=== PATIENT | female | born 1995 | race Caucasian/White ===

== ENCOUNTER 2018-10-28 17:42 | Inpatient (IN) | payer BC, OTHER ==
[~2018-10-28] VITALS: Ht 160 cm; Wt 84.1 kg
[2018-10-28 17:50] VITALS: BP 122/69
[2018-10-28 18:50] LABS: MICROSCOPIC NOT IND
[2018-10-28 18:53] LABS: BASOPHILS # (AUTO) 0.01 x10^3/uL (0-0.1); BASOPHILS % (AUTO) 0 % (0-1); EOSINOPHILS # (AUTO) 0.19 x10^3/uL (0-0.4); EOSINOPHILS % (AUTO) 2 % (1-7); LYMPHOCYTES # (AUTO) 1.63 x10^3/uL (1-3.4); LYMPHOCYTES % (AUTO) 13 % (22-44); MD NO; MEAN CORPUSCULAR HEMOGLOBIN 34.5 pg (27.0-34.8); MEAN CORPUSCULAR HGB CONC 33.9 g/dL (32.4-35.8); MEAN CORPUSCULAR VOLUME 101.7 fL (80-100); MEAN PLATELET VOLUME 7.4 fL (7.4-10.4); MONOCYTES # (AUTO) 1.18 x10^3/uL (0.2-0.8); MONOCYTES % (AUTO) 9 % (2-9); NEUTROPHILS # (AUTO) 9.63 x10^3/uL (1.8-6.8); NEUTROPHILS % (AUTO) 76 % (42-75); PLATELET COUNT 250 x10^3/uL (130-400); RED BLOOD COUNT 4.26 x10^6/uL (3.82-5.3); RED CELL DISTRIBUTION WIDTH 15.6 % (9.6-15.2)
[2018-10-28] MEDS ORDERED: OXYTOCIN 30U/ 0.9% NaCL 500ML 500 ML IV ONE (20:30)
[2018-10-28] MEDS ORDERED: ALUMINUM/MAG/SIMETHICONE 30 ML UDC PO PRN (20:30)
[2018-10-28] MEDS ORDERED: TERBUTALINE 1 MG/ML, 1ML SQ PRN (20:30)
[2018-10-28] MEDS ORDERED: FENTANYL PF 100 MCG/2ML IVPush PRN (20:30)
[2018-10-28] MEDS ORDERED: TERBUTALINE 1 MG/ML, 1ML IVPush PRN ×2 (20:30)
[2018-10-28] MEDS ORDERED: ONDANSETRON 2MG/ML, 2ML IVPush PRN (20:30)
[2018-10-28] MEDS ORDERED: FENTANYL PF 100 MCG/2ML IV PRN (20:30)
[2018-10-28] MEDS ORDERED: SODIUM CITRATE/CITRIC ACID 15 ML UDC PO PRN (20:30)
[2018-10-28] MEDS ORDERED: CALCIUM CARBONATE 500 MG TAB.CHEW PO PRN (20:30)
[2018-10-28] MEDS ORDERED: D5%-LACTATED RINGERS 1,000 ML IV SCH (20:30)
[2018-10-28] MEDS ORDERED: OXYTOCIN 30U/ 0.9% NaCL 500ML 500 ML ONE (20:37)
[2018-10-28] MEDS ORDERED: NEWBORN KIT ONE (20:37)
[2018-10-28] MEDS ORDERED: PLEASE ENTER ALLERGIES MC SCH (21:00)
[2018-10-28 21:08] LABS: MEAN CORPUSCULAR HEMOGLOBIN 34.5 pg (27.0-34.8); MEAN CORPUSCULAR HGB CONC 33.8 g/dL (32.4-35.8); MEAN CORPUSCULAR VOLUME 102.2 fL (80-100); MEAN PLATELET VOLUME 7.3 fL (7.4-10.4); PLATELET COUNT 248 x10^3/uL (130-400); RED BLOOD COUNT 4.39 x10^6/uL (3.82-5.3); RED CELL DISTRIBUTION WIDTH 15.7 % (9.6-15.2)
[2018-10-28 21:20] VITALS: BP 122/70
[2018-10-28] MEDS: LACTATED RINGERS 1,000 ML IV SCH (21:20)
[2018-10-28 21:30] LABS: BASOPHILS # (AUTO) 0.03 x10^3/uL (0-0.1); BASOPHILS % (AUTO) 0 % (0-1); EOSINOPHILS # (AUTO) 0.17 x10^3/uL (0-0.4); EOSINOPHILS % (AUTO) 1 % (1-7); LYMPHOCYTES # (AUTO) 2.03 x10^3/uL (1-3.4); LYMPHOCYTES % (AUTO) 12 % (22-44); MD MORPH REVIEW ONLY; MONOCYTES # (AUTO) 1.24 x10^3/uL (0.2-0.8); MONOCYTES % (AUTO) 8 % (2-9); NEUTROPHILS # (AUTO) 13.15 x10^3/uL (1.8-6.8); NEUTROPHILS % (AUTO) 79 % (42-75)
[2018-10-28 21:31] LABS: PMNS WITH VACUOLES 1+
[2018-10-28 21:32] LABS: <PLATELET ESTIMATE> ADEQUATE; <PLT MORPHOLOGY> NORMAL PLT MORPH
[2018-10-28] MEDS ORDERED: LACTATED RINGERS 1,000 ML IV SCH (23:35)
[2018-10-28] MEDS ORDERED: FENTANYL/BUPIV./NS/PF 250 ML EPIDCONT SCH (23:35)
[2018-10-28] MEDS ORDERED: FENTANYL PF 500 MCG, BUPIVACAINE/PF 0.5%, 30ML 62.5 ML in SODIUM CHLORIDE 0.9% 177.5 ML EPIDCONT SCH (23:45)
[2018-10-29] MEDS ORDERED: LACTATED RINGERS 1,000 ML IVBOLUS PRN
[2018-10-29] MEDS ORDERED: OXYTOCIN 30U/ 0.9% NaCL 500ML 500 ML IV PRN (00:46)
[2018-10-29] MEDS ORDERED: OXYTOCIN 30U/ 0.9% NaCL 500ML 500 ML ONE ×2 (01:08→14:17)
[2018-10-29] MEDS ORDERED: BUPIVACAINE 0.25% ONE (03:59)
[2018-10-29] MEDS ORDERED: FENTANYL PF 100 MCG/2ML ONE (03:59)
[2018-10-29] MEDS: LACTATED RINGERS 1,000 ML IV SCH (04:21)
[2018-10-29] MEDS ORDERED: LACTATED RINGERS 1,000 ML IV SCH (04:32)
[2018-10-29] MEDS ORDERED: FENTANYL/BUPIV./NS/PF 250 ML EPIDCONT SCH (04:32)
[2018-10-29] MEDS ORDERED: EPHEDRINE 50 MG/ML, 1ML IVPush PRN ×2 (05:00)
[2018-10-29] MEDS ORDERED: ONDANSETRON 2MG/ML, 2ML IVPush PRN (05:00)
[2018-10-29 07:21] VITALS: BP 118/67
[2018-10-29] MEDS ORDERED: ACETAMINOPHEN 500 MG TABLET PO STA (10:00)
[2018-10-29] MEDS ORDERED: AMPICILLIN 2 GM in SODIUM CHLORIDE 0.9% 100 ML IV SCH (10:00)
[2018-10-29] MEDS ORDERED: ACETAMINOPHEN 500 MG TABLET ONE (10:05)
[2018-10-29] MEDS ORDERED: MISOPROSTOL 200 MCG TABLET ONE (10:22)
[2018-10-29] MEDS ORDERED: LIDOCAINE 1%, 20ML ONE (10:22)
[2018-10-29] MEDS ORDERED: GENTAMICIN PER PHARMACY MC PRN (11:00)
[2018-10-29] MEDS ORDERED: GENTAMICIN 160 MG in SODIUM CHLORIDE 0.9% 50 ML IV ONE (12:00)
[2018-10-29] MEDS ORDERED: METHYLERGONOVINE 0.2 MG/ML IM PRN (13:30)
[2018-10-29] MEDS ORDERED: ONDANSETRON 2MG/ML, 2ML IV PRN (13:30)
[2018-10-29] MEDS ORDERED: ACETAMINOPHEN 325 MG TABLET PO PRN ×2 (13:30)
[2018-10-29] MEDS ORDERED: OXYcodone/APAP 5/325MG TABLET PO PRN (13:30)
[2018-10-29] MEDS ORDERED: MISOPROSTOL 200 MCG TABLET PR PRN (13:30)
[2018-10-29] MEDS ORDERED: IBUPROFEN 600 MG TABLET ONE (14:17)
[2018-10-29] MEDS: IBUPROFEN 600 MG TABLET PO PRN ×2 (14:22→20:09)
[2018-10-29] MEDS: OXYTOCIN 30U/ 0.9% NaCL 500ML 500 ML IV SCH ×2 (14:22→23:02)
[2018-10-29 15:15] VITALS: BP 105/61
[2018-10-29 19:15] VITALS: BP 97/63
[2018-10-29] MEDS ORDERED: GENTAMICIN 150 MG in SODIUM CHLORIDE 0.9% 50 ML IV SCH (20:00)
[2018-10-29] MEDS: DOCUSATE 100 MG CAPSULE PO PRN (20:09)
[2018-10-29 21:18] LABS: MD YES; MEAN CORPUSCULAR HGB CONC 34.3 g/dL (32.4-35.8); MEAN PLATELET VOLUME 7.2 fL (7.4-10.4); PLATELET COUNT 204 x10^3/uL (130-400); RED BLOOD COUNT 3.43 x10^6/uL (3.82-5.3); RED CELL DISTRIBUTION WIDTH 15.1 % (9.6-15.2)
[2018-10-29 22:54] LABS: LYMPH#(MANUAL) 2.42 x10^3/uL (1-3.4); LYMPHS% (MANUAL) 13 % (22-44); MONOS#(MANUAL) 1.49 x10^3/uL (0.3-2.7); MONOS% (MANUAL) 8 % (2-9); SEG#(MANUAL) 14.69 x10^3/uL (1.8-6.8); SEGS% (MANUAL) 79 % (42-75)
[2018-10-29 22:55] LABS: <PLATELET ESTIMATE> ADEQUATE; <PLT MORPHOLOGY> NORMAL PLT MORPH; OVALOCYTES 1+; POLYCHROMASIA 1+
[2018-10-30 00:30] VITALS: BP 99/64
[2018-10-30] MEDS: IBUPROFEN 600 MG TABLET PO PRN ×4 (02:27→22:29)
[2018-10-30 04:00] VITALS: BP 100/62
[2018-10-30 07:20] VITALS: BP 113/76
[2018-10-30] MEDS: OXYTOCIN 30U/ 0.9% NaCL 500ML 500 ML IV SCH (09:02)
[2018-10-30] MEDS: PRENATAL VIT/IRON/FA 1 EACH TABLET PO SCH (09:57)
[2018-10-31] MEDS: IBUPROFEN 600 MG TABLET PO PRN (04:42)
[2018-10-31] MEDS ORDERED: IBUP-1222 PO (07:29)
[2018-10-31 08:20] VITALS: BP 111/73
[2018-10-31] MEDS: PRENATAL VIT/IRON/FA 1 EACH TABLET PO SCH (09:00)
[2018-10-31] MEDS: DOCUSATE 100 MG CAPSULE PO PRN (11:48)
== END 2018-10-31 12:07 | disposition home or self-care (01) | DRG 807 ==
LOC: LDOP 17:42 → LDIP 20:25 → 2NW 10-29 14:47
PROVIDERS: ADMIT Obstetrics & Gynecology; ATTEND Obstetrics & Gynecology
PROC: 10E0XZZ Delivery of Products of Conception, External Approach (ICD-10-PCS; principal; 2018-10-29)
PROC: 10907ZC Drainage of Amniotic Fluid, Therapeutic from Products of Conception, Via Natural or Artificial Opening (ICD-10-PCS; 2018-10-29)
PROC: 3E033VJ Introduction of Other Hormone into Peripheral Vein, Percutaneous Approach (ICD-10-PCS; 2018-10-29)
PROC: 0HQ9XZZ Repair Perineum Skin, External Approach (ICD-10-PCS; 2018-10-29)
PROC: 3E0R3BZ Introduction of Anesthetic Agent into Spinal Canal, Percutaneous Approach (ICD-10-PCS; 2018-10-29)
PROC: 00HU33Z Insertion of Infusion Device into Spinal Canal, Percutaneous Approach (ICD-10-PCS; 2018-10-29)
DX: O70.0 First degree perineal laceration during delivery (principal); Z37.0 Single live birth; V89.2XXA Person injured in unspecified motor-vehicle accident, traffic, initial encounter; Y92.411 Interstate highway as the place of occurrence of the external cause; Z3A.40 40 weeks gestation of pregnancy; Z83.3 Family history of diabetes mellitus
CPT/HCPCS: 36415; J7121; S0020; 76819; 81003; 85025; 85460; 86850; 86900; 87086; G0378; J0290; J3010; J1580; J2590; J7050; J7120

== ENCOUNTER 2020-09-27 12:52 | Outpatient (CLI) | payer OTHER ==
[~2020-09-27] VITALS: Ht 160 cm; Wt 87.7 kg
[~2020-09-27 12:52] MED LIST: IBUP-1222 PO
== END 2020-09-27 15:20 | disposition home or self-care (01) ==
LOC: LDOP 12:52
PROVIDERS: ATTEND Obstetrics & Gynecology
DX: O46.93 Antepartum hemorrhage, unspecified, third trimester (principal); Z3A.37 37 weeks gestation of pregnancy
CPT/HCPCS: 59025

== ENCOUNTER 2020-10-09 23:12 | Inpatient (IN) | payer OTHER ==
[~2020-10-09] VITALS: Ht 160 cm; Wt 87.5 kg
[2020-10-10] MEDS ORDERED: NEWBORN KIT ONE (00:42)
[2020-10-10] MEDS ORDERED: MISOPROSTOL 200 MCG TABLET ONE (00:43)
[2020-10-10] MEDS ORDERED: LIDOCAINE 1%, 20ML ONE (00:43)
[2020-10-10 00:58] LABS: BASOPHILS % (AUTO) 1 % (0-1); EOSINOPHILS % (AUTO) 2 % (1-7); LYMPHOCYTES % (AUTO) 17 % (22-44); MEAN CORPUSCULAR HEMOGLOBIN 32.7 pg (27.0-34.8); MEAN CORPUSCULAR HGB CONC 35.4 g/dL (32.4-35.8); MEAN PLATELET VOLUME 7.5 fL (7.4-10.4); MONOCYTES % (AUTO) 10 % (2-9); NEUTROPHILS % (AUTO) 71 % (42-75); PLATELET COUNT 200 x10^3/uL (130-400); RED BLOOD COUNT 4.39 x10^6/uL (3.82-5.3); RED CELL DISTRIBUTION WIDTH 19.1 % (9.6-15.2)
[2020-10-10] MEDS ORDERED: OXYTOCIN 30U/ 0.9% NaCL 500ML 500 ML IV ONE (01:00)
[2020-10-10] MEDS ORDERED: FENTANYL PF 100 MCG/2ML IVPush PRN (01:00)
[2020-10-10] MEDS ORDERED: TERBUTALINE 1 MG/ML, 1ML SQ PRN (01:00)
[2020-10-10] MEDS ORDERED: FENTANYL PF 100 MCG/2ML IV PRN (01:00)
[2020-10-10] MEDS ORDERED: ONDANSETRON 2MG/ML, 2ML IVPush PRN (01:00)
[2020-10-10] MEDS ORDERED: TERBUTALINE 1 MG/ML, 1ML IVPush PRN (01:00)
[2020-10-10] MEDS ORDERED: LACTATED RINGERS 1,000 ML IV SCH ×2 (01:00→02:00)
[2020-10-10] MEDS ORDERED: CALCIUM CARBONATE 500 MG TAB.CHEW PO PRN (01:00)
[2020-10-10] MEDS ORDERED: OXYTOCIN 30U/ 0.9% NaCL 500ML 500 ML IV PRN (01:00)
[2020-10-10] MEDS ORDERED: D5%-LACTATED RINGERS 1,000 ML IV SCH (01:00)
[2020-10-10] MEDS ORDERED: BUPIVACAINE 0.25% ONE (01:21)
[2020-10-10] MEDS ORDERED: FENTANYL/BUPIV./NS/PF 250 ML EPIDCONT SCH ×2 (01:30→02:00)
[2020-10-10] MEDS ORDERED: FENTANYL PF 500 MCG, BUPIVACAINE/PF 0.5%, 30ML 62.5 ML in SODIUM CHLORIDE 0.9% 177.5 ML EPIDCONT SCH (01:30)
[2020-10-10] MEDS ORDERED: LACTATED RINGERS 1,000 ML IVBOLUS PRN (02:00)
[2020-10-10] MEDS ORDERED: EPHEDRINE 50 MG/ML, 1ML IVPush PRN (02:00)
[2020-10-10] MEDS ORDERED: IBUPROFEN 800 MG TABLET PO PRN (12:00)
[2020-10-10] MEDS ORDERED: SIMETHICONE 80 MG CHEW TAB PO PRN (12:00)
[2020-10-10] MEDS ORDERED: ONDANSETRON 2MG/ML, 2ML IV PRN (12:00)
[2020-10-10] MEDS ORDERED: TRANEXAMIC ACID 1,000 MG in SODIUM CHLORIDE 0.9% 100 ML IVPB ONE (12:00)
[2020-10-10] MEDS ORDERED: MISOPROSTOL 200 MCG TABLET PO PRN (12:00)
[2020-10-10] MEDS ORDERED: OXYcodone IR 5MG TABLET PO PRN (12:00)
[2020-10-10] MEDS ORDERED: OXYcodone/APAP 5/325MG TABLET PO PRN (12:00)
[2020-10-10] MEDS ORDERED: METOCLOPRAMIDE 5 MG/ML, 2ML IV PRN (12:00)
[2020-10-10] MEDS ORDERED: ACETAMINOPHEN 325 MG TABLET PO PRN (12:00)
[2020-10-10] MEDS ORDERED: METHYLERGONOVINE 0.2 MG/ML IM PRN (12:00)
[2020-10-10] MEDS ORDERED: CARBOPROST TROMETHAMINE 250 MCG/ML, 1ML IM PRN (12:00)
[2020-10-10 13:20] VITALS: BP 108/55
[2020-10-10] MEDS: OXYTOCIN 30U/ 0.9% NaCL 500ML 500 ML IV SCH ×2 (14:30→15:43)
[2020-10-10] MEDS: IBUPROFEN 600 MG TABLET PO PRN ×2 (15:01→21:17)
[2020-10-10 16:48] VITALS: BP 116/75
[2020-10-10 19:48] LABS: BASOPHILS % (AUTO) 0 % (0-1); EOSINOPHILS % (AUTO) 1 % (1-7); LYMPHOCYTES % (AUTO) 10 % (22-44); MEAN CORPUSCULAR HEMOGLOBIN 32.7 pg (27.0-34.8); MEAN PLATELET VOLUME 7.6 fL (7.4-10.4); MONOCYTES % (AUTO) 10 % (2-9); NEUTROPHILS % (AUTO) 79 % (42-75); PLATELET COUNT 194 x10^3/uL (130-400); RED BLOOD COUNT 4.08 x10^6/uL (3.82-5.3); RED CELL DISTRIBUTION WIDTH 18.4 % (9.6-15.2)
[2020-10-10 20:00] VITALS: BP 122/80
[2020-10-10] MEDS: DOCUSATE 100 MG CAPSULE PO PRN (21:17)
[2020-10-11 00:30] VITALS: BP 108/73
[2020-10-11] MEDS: IBUPROFEN 600 MG TABLET PO PRN ×2 (04:02→10:12)
[2020-10-11 04:06] VITALS: BP 109/73
[2020-10-11] MEDS ORDERED: IBUP-1222 PO (05:54)
[2020-10-11 08:00] VITALS: BP 106/72
[2020-10-11] MEDS: OXYTOCIN 30U/ 0.9% NaCL 500ML 500 ML IV SCH (08:00)
[2020-10-11] MEDS ORDERED: PRENATAL VIT/IRON/FA 1 EACH TABLET PO SCH (09:00)
[2020-10-11] MEDS: DOCUSATE 100 MG CAPSULE PO PRN (09:09)
== END 2020-10-11 12:27 | disposition home or self-care (01) | DRG 807 ==
LOC: LDOP 23:12 → LDIP 10-10 00:43 → 2NW 10-10 13:13
PROVIDERS: ADMIT Obstetrics & Gynecology; ATTEND Obstetrics & Gynecology
PROC: 10E0XZZ Delivery of Products of Conception, External Approach (ICD-10-PCS; principal; 2020-10-10)
PROC: 10907ZC Drainage of Amniotic Fluid, Therapeutic from Products of Conception, Via Natural or Artificial Opening (ICD-10-PCS; 2020-10-10)
PROC: 10H07YZ Insertion of Other Device into Products of Conception, Via Natural or Artificial Opening (ICD-10-PCS; 2020-10-10)
PROC: 0HQ9XZZ Repair Perineum Skin, External Approach (ICD-10-PCS; 2020-10-10)
PROC: 3E0R3BZ Introduction of Anesthetic Agent into Spinal Canal, Percutaneous Approach (ICD-10-PCS; 2020-10-10)
PROC: 00HU33Z Insertion of Infusion Device into Spinal Canal, Percutaneous Approach (ICD-10-PCS; 2020-10-10)
DX: O77.0 Labor and delivery complicated by meconium in amniotic fluid (principal); Z37.0 Single live birth; Z3A.39 39 weeks gestation of pregnancy; Z20.822 Contact with and (suspected) exposure to COVID-19; O70.0 First degree perineal laceration during delivery
CPT/HCPCS: 36415; J3490; J7121; S0020; 85025; 86592; 86850; 86900; 87635; G0378; J3010; J2590; J7050